=== PATIENT | female | born 1970 | race American Indian/Alaskan Native ===

== ENCOUNTER 2016-10-07 12:06 | Outpatient (CLI) | payer OTHER ==
[2016-10-07 12:49] LABS: Basophils % (Auto) 0.2 % (0.0-1.8); Hematocrit 40.6 % (30.3-42.9); Hemoglobin 13.5 gm/dl (10.1-14.3); Mean Corpuscular HGB Conc 33 % (30-34); Mean Corpuscular Hemoglobin 28 pg (28-32); Mean Corpuscular Volume 84 fl (79-97); Platelet Count 242 K/mm3 (140-440); Red Blood Count 4.82 M/mm3 (3.65-5.03); Red Cell Distribution Width 14.6 % (13.2-15.2); White Blood Count 7.9 K/mm3 (4.5-11.0)
[2016-10-07 12:55] LABS: Alanine Aminotransferase 47 units/L (7-56); Albumin 4.5 g/dL (3.9-5); Albumin/Globulin Ratio 1.3 %; Alkaline Phosphatase 102 units/L (35-129); Anion Gap 19 mmol/L; BUN/Creatinine Ratio 21.66; Bilirubin,Total < 0.2 mg/dL (0.1-1.2); Blood Urea Nitrogen 13 mg/dL (7-17); Carbon Dioxide 25 mmol/L (22-30); Chloride 98.7 mmol/L (98-107); Cholesterol 220 mg/dL (50-199); Glucose 126 mg/dL (65-100); HDL Cholesterol 36 mg/dL (40-59); LDL Cholesterol,Direct 144 mg/dL (50-130); Potassium 3.9 mmol/L (3.6-5.0); Sodium 139 mmol/L (137-145); Total Protein 8.1 g/dL (6.3-8.2); Triglycerides 204 mg/dL (2-149)
== END 2016-10-07 12:07 | disposition home or self-care (01) ==
LOC: LABHHL 12:06
PROVIDERS: ATTEND Specialist
DX: Z00.00 Encounter for general adult medical examination without abnormal findings (principal); E11.9 Type 2 diabetes mellitus without complications; D50.9 Iron deficiency anemia, unspecified; K30 Functional dyspepsia; E61.8 Deficiency of other specified nutrient elements
CPT/HCPCS: 36415; 80053; 80061; 83036; 84443; 85025

== ENCOUNTER 2017-02-10 07:57 | Inpatient (IN) | payer OTHER ==
[~2017-02-10 07:57] MED LIST: APRESOLINE IV PRN; MORPHINE IV PRN; REGLAN IV PRN; ZOFRAN IV PRN
[2017-02-10] MEDS ORDERED: LOVENOX SUB-Q SCH (10:00)
[2017-02-10] MEDS ORDERED: ANCEF/STERILE WATER 2 GM/20 ML 2 GM/20 ML SYRINGE IV NR (15:00)
[2017-02-10] MEDS ORDERED: TRANSDERM-SCOP TD SCH (15:00)
[2017-02-10] MEDS ORDERED: MYLICON PO PRN (15:00)
[2017-02-10] MEDS ORDERED: FLAGYL 500 MG/100 ML 500 MG/100 ML BAG IV NR (15:00)
[2017-02-10] MEDS ORDERED: LOVENOX SUB-Q NR (15:00)
[2017-02-10] MEDS: LACTATED RINGERS 1,000 ML IV SCH (15:18)
[2017-02-10 15:36] LABS: Basophils % (Auto) 0.3 % (0.0-1.8); Eosinophils % (Auto) 0.8 % (0.0-4.3); Hematocrit 37.7 % (30.3-42.9); Hemoglobin 12.4 gm/dl (10.1-14.3); Mean Corpuscular HGB Conc 33 % (30-34); Mean Corpuscular Hemoglobin 28 pg (28-32); Mean Corpuscular Volume 84 fl (79-97); Platelet Count 235 K/mm3 (140-440); Red Cell Distribution Width 15.4 % (13.2-15.2); White Blood Count 8.1 K/mm3 (4.5-11.0)
[2017-02-10] MEDS ORDERED: DILAUDID IV PRN (15:38)
[2017-02-10] MEDS ORDERED: ZOFRAN IV PRN (15:38)
--- NOTE | 2017-02-10 15:43 | Anesthesia Consultation ---
Anesthesia Consult and Med Hx Date of service: 02/10/17 - Airway Anesthetic Teeth Evaluation: Good ROM Head & Neck: Adequate Mental/Hyoid Distance: Adequate Mallampati Class: Class II Intubation Access Assessment: Probably Good - Pulmonary Exam CTA: Yes - Cardiac Exam Cardiac Exam: RRR - Pre-Operative Health Status ASA Pre-Surgery Classification: ASA3 Proposed Anesthetic Plan: General - Pulmonary Hx Smoking: No Hx Sleep Apnea: Yes (+CPAP) - Cardiovascular System Hx Hypertension: Yes (FOR 4 MTHS) - Central Nervous System Hx Seizures: No CVA: No Hx Psychiatric Problems: No - Endocrine Hx Renal Disease: No Hx Cirrhosis: No Hx Non-Insulin Dependent Diabetes: Yes - Other Systems Hx Cancer: No Hx Obesity: Yes
--- NOTE | 2017-02-10 15:44 | Anesthesia Day of Surgery ---
Anesthesia Day of Surgery - Day of Surgery Patient Examined: Yes Patient H&P Reviewed: Yes Patient is NPO: Yes
[2017-02-10 15:50] LABS: Alanine Aminotransferase 52 units/L (7-56); Albumin 4.1 g/dL (3.9-5); Albumin/Globulin Ratio 1.2 %; Alkaline Phosphatase 98 units/L (35-129); Anion Gap 20 mmol/L; BUN/Creatinine Ratio 11.25; Blood Urea Nitrogen 9 mg/dL (7-17); Calcium 9.8 mg/dL (8.4-10.2); Carbon Dioxide 24 mmol/L (22-30); Chloride 101.7 mmol/L (98-107); Glucose 111 mg/dL (65-100); Potassium 3.8 mmol/L (3.6-5.0); Sodium 142 mmol/L (137-145); Total Protein 7.5 g/dL (6.3-8.2)
[2017-02-10 16:00] LABS: Phosphorous 3.4 mg/dL (2.5-4.5)
[2017-02-10] MEDS ORDERED: PEPCID IV NR (16:00)
[2017-02-10] MEDS ORDERED: REGLAN IV NR (16:00)
[2017-02-10] MEDS ORDERED: VERSED IV NR (16:00)
[2017-02-10] MEDS ORDERED: DIPRIVAN 10 MG/ML IV ONE (16:04)
[2017-02-10] MEDS ORDERED: MARCAINE-EPI 0.5%-1:200,000 INFILTRATI ONE ×2 (16:05→16:32)
[2017-02-10] MEDS ORDERED: SUBLIMAZE ONE (16:05)
[2017-02-10] MEDS ORDERED: XYLOCAINE 1% 20 mL ONE (16:05)
[2017-02-10] MEDS ORDERED: XYLOCAINE 1% 20 mL INFILTRATI ONE (16:32)
[2017-02-10] MEDS ORDERED: NACL 0.9% IR ONE (16:32)
[2017-02-10] MEDS ORDERED: QUELICIN ONE (16:37)
[2017-02-10] MEDS ORDERED: DECADRON ONE (16:41)
[2017-02-10] MEDS ORDERED: XYLOCAINE MPF 2% ONE (16:41)
[2017-02-10] MEDS ORDERED: ZEMURON IV ONE (16:41)
[2017-02-10] MEDS ORDERED: ROBINUL ONE (16:49)
[2017-02-10] MEDS ORDERED: ZOFRAN ONE (16:49)
[2017-02-10] MEDS ORDERED: NEOSTIGMINE ONE (16:49)
[2017-02-10] MEDS ORDERED: LACTATED RINGERS 1,000 ML ONE (17:10)
--- NOTE | 2017-02-10 18:56 | Post Anesthesia Evaluation ---
- Post Anesthesia Evaluation Patient Participated: Yes Airway Patent: Yes Stable Respiratory Function: Yes Nausea/Vomiting: No Temp > 96.8F: Yes Pain Manageable: Yes Adequeate Hydration: Yes Anesthesia Complications: No Block Receding Appropriately: Not Applicable Patient on Ventilator: No Other Comments: PACU NURSE REPORTED SUCTIONING OUT A PIECE OF TOOTH FROM PATIENTS BOTTOM LEFT MOLAR. I EXAMINED THE PATIENT. MOLAR APPEARS TO HAVE SOME DECAY AROUND IT BUT IS NOT LOOSE. HARD TO TELL IF MOLAR IS CHIPPED. MOLAR APPEARS TO BE INTACT THOUGH.
--- NOTE | 2017-02-11 01:34 | Operative Report ---
PREOPERATIVE DIAGNOSES: 1. Morbid obesity. 2. Hypertension. POSTOPERATIVE DIAGNOSES: 1. Morbid obesity. 2. Hypertension. 3. Epigastric abdominal pain. 4. Severe intra-abdominal adhesions. 5. Hiatal hernia. 6. Inadvertent injury to the small bowel from lysis of adhesions. OPERATIVE PROCEDURES: 1. Laparoscopic sleeve gastrectomy with hiatal hernia repair. 2. Laparoscopic lysis of adhesions. 3. Laparoscopic repair of enterotomy. SURGEON: Faisal Vásquez M.D. PUBLIC RELATIONS SPECIALIST: Edi Oneal. ANESTHESIA: General. OPERATIVE TECNIQUE: The patient was placed on the operating table in dorsal supine position, and following satisfactory induction of general anesthesia, the abdomen was prepped using Hibiclens solution and draped in a sterile fashion. Using a sharp skin knife, a skin incision was made at the umbilicus and a Veress needle was placed with insufflation of CO2. After adequate insufflation of CO2 was accomplished inside the abdominal cavity, a 15 mm trocar was then placed inside the abdominal cavity for inspection of the intra-abdominal contents. Upon entering the abdominal cavity, it was noted the patient had adhesive disease in the periumbilical area. Several other trocars were then placed under direct vision and then we took a 5 mm scope and looked back at the level of the umbilicus where the umbilical port was placed and it was noted that the patient had severe intra-abdominal adhesions, small bowel up to the umbilicus. It appeared that the patient had a small bowel injury and we therefore spent about 20 minutes taking these adhesions down with the LigaSure device as well as a sharp scissor dissection. We did not take the entire area down until the very last minute. We reinspected the area of the small bowel. We inspected the area of the small bowel to see if there was a rrhnrdj-zkp-uhvycah injury to the small bowel. We could not identify ____ area. There was no evidence of ____. We therefore closed the enterotomy with a single interrupted suture. We wanted to inspect this area later on, therefore we left a single closure of this sutured area so that we could find it later on once we were to take the stomach out. We wanted to bring this up to the area where we would extract the stomach so that we can inspect it further. We then turned our attention to the sleeve gastrectomy. The liver was then lifted up with the liver retracting device. After the liver was elevated, it was noted the patient had a hiatal hernia. The phrenoesophageal membrane was dissected free away from the esophagus and the crura of the diaphragm. After the phrenoesophageal membrane was dissected free and the hernia sac was identified, the esophagus was freed up into the abdominal cavity and the right and left андрей was identified and the hiatal hernia sac was identified and dissected free. Right and left андрей was then reapproximated with interrupted simple suture of 0 Surgidac. After the hiatal hernia defect was closed, we then began a dissection of the greater curvature of the stomach by taking the LigaSure bipolar device from approximately 3 cm proximal to the pylorus. We took down the greater curvature vasculature with the LigaSure device all the way up to the level of the gastrocolic ligament as well as the short gastric vessels all the way up to the left андрей of the diaphragm. There was no evidence of any bleeding as the greater curvature was completely freed up. We then passed a #40 bougie down into the stomach, and as the anesthesia passed 40 bougie down, we grasped down to the level of the antrum. The bougie was placed. We then began a sleeve gastrectomy brought by firing sequential firings of the [place] stapling device along the greater curvature of the stomach and along the bougie, care being taken to avoid any angulation at the angularis incisura. The stapling was started out with a green load, a gold load and then completed with a blue load up to the level of the fundus of the stomach until the stomach was completely excised. The bougie was removed and the bleeding was controlled along the staple line after the pressure inside the abdominal cavity was lowered to round about 10 mmHg. The oozing at the staple line was then controlled using the hook electrocautery. After adequate hemostasis was obtained, we then applied a layer of Tisseel to the staple line to further stabilize any oozing of the staple line. The fundus of the resected stomach was then sutured to the injured small bowel and then this portion of the small bowel was then grasped with a grasper and was then extracted through the umbilicus through an extended incision at the umbilicus. As we brought the stomach out of the umbilicus, the small bowel ____ and we grasped the small bowel with Allis clamps and the suture holding the small bowel together was then excised. We then inspected the small bowel to make sure that there was no aqslqrx-qap-lvpvczk injury to the mesentery side and we could not identify any other injury in this portion of the small bowel. We therefore took a white load and stapled across this area of the small bowel and noted no other injuries to this area of the small bowel at all. After this was completed, we then ran a second layer of serosa and sutured with 3-0 Vicryl sutures over the staple line, and after this was completed, we then pushed the small bowel back inside the abdominal cavity. The stomach specimen was passed off for surgical sectioning and we began to close it by reapproximating the fascia using a running suture of #1 PDS and the skin was closed with surgical sites using interrupted subdermal stitches of 4-0 Monocryl. Steri-Strips were applied to the wound. The patient tolerated the procedure well and subsequently sent over to recovery room in satisfactory condition. JOB# [id number] LOUISE/BETTINA
[2017-02-11] MEDS: LACTATED RINGERS 1,000 ML IV SCH (02:53)
--- NOTE | 2017-02-11 07:28 | Admit Criteria Form ---
Admission Criteria Documentation: AMBULATORY SURGERY EXCEPTION CRITERIA Ambulatory Surgery Exception Criteria ( Place 'X' for any and all applicable criteria): Surgery or procedure performed on ambulatory basis may require inpatient stay for[A] ANY ONE of the following(1)(2)(3)(4)(5)(6)(7)(8)(9): [X] I. A preoperative situation, condition, or finding that warrants inpatient stay as indicated by ANY ONE of the following: [] a) Inpatient care needed because of severity of a disease or condition rather than the surgery (eg, severe cardiac or respiratory disease, severe infection) (15) (16 ) (17) (18) [] b) Emergent procedure (eg, angioplasty for acute ischemia)(19) [] c) Complex surgical approach or situation as indicated by ANY ONE of the following(3): [] i) Open approach needed instead of usual endoscopic, transcatheter, or other less invasive procedure [] ii) Difficult approach because of previous operation [] iii) Airway monitoring required after open neck procedures(20)(21) [] iv) Large mass requiring unusually extensive dissection [] v) Additional complicating feature requiring inpatient care (eg, drain management)(22(23): [X] d) Major surgery in a pt with high anesthetic risk as indicated by ANY ONE of the following (2)(3)(5)(7)(8): [X] i) ASA risk class III or higher (severe systemic disease impairing function) [D] [] ii) Advanced age (eg, older than 85 years)(14)(24) [] iii) Symptomatic heart failure(25) [] iv) Symptomatic asthma or COPD(8)(21) [] v) Morbid obesity with hemodynamic or respiratory problems(20)( 21)(26)(27) [] vi) Obstructive sleep apnea(20)(21) [] vii) Former premature infants who are younger than 60 weeks [] viii) High risk for severe postoperative abnormalities (eg, severe postoperative hypocalcemia after parathyroidectomy for severe hyperparathyroidism)(27)( 28) [] ix) Unstable angina(25) [] e) Drug-related risk requiring inpatient stay as indicated by ANY ONE of the following(5)(10)(14)(32)(33) [] i) Procedure requires discontinuing drugs or other therapy (eg , antiarrhythmic medication, antiseizure medication), which necessitates inpatient observation or treatment.(18)(31) [] ii) Major surgery and high risk drug use as indicated by ANY ONE of the following: [] 1) Active abuse of cocaine or similar drug [] 2) Monoamine oxidase inhibitor use [] 3) Other drug identified as posing risk [] f) Inadequate outpatient care situation as indicated by ANY ONE of the following(5)(10)(14)(32)(33) [] i) Patient lives remote from medical facility and procedure has urgent complication potential, and temporary nearby residence cannot be arranged [] ii) Patient will have postprocedure incapacitation and inadequate assistance at home, or alternative level of care cannot be arranged. [] iii) Patient will have long general anesthesia or procedure side effect resolution time, and competent person to stay with patient on first postoperative night at home or alternative level of care cannot be arranged. []iv) Other inadequate outpatient situation that cannot be handled by other means [] II. A perioperative event, condition, or finding that warrants inpatient stay as indicated by ANY ONE of the following (1)(2)(3): [] a) Inadequate physiologic recovery: cardiovascular, respiratory, or hemodynamic status not normal or near preoperative baseline(18) [] b) Hemodynamic instability [] c) Patient not alert with near normal or baseline mental status [] d) Temperature not normal or as expected and not appropriate for outpatient treatment of condition [] e) Ambulatory or appropriate activity level status not yet achieved post procedure [E](34)(35)(36) [] f) Operative site not appropriate (eg, unexpected or excessive drainage or bleeding) [] g) Postoperative effects not resolved or adequately managed (eg, significant pain or vomiting not appropriate for outpatient or next level of care)(10)(12) [] h) Complicating features requiring inpatient care as indicated by ANY ONE of the following(37): [] i) Severe complications of procedure (eg, bowel injury, airway compromise, vascular injury,severe hemorrhage) [] ii) Extensive (eg, dissection far beyond usual scope of procedure ) or prolonged (eg, 120 minutes beyond usual) surgery needed requiring inpatient postoperative care [] iii) Conversion to an open or complex procedure that requires inpatient care (eg, open vs laparoscopic cholecystectomy, abdominal vs vaginal hysterectomy)(38) [] iv) Comorbid condition or test result identified during or post procedure that requires inpatient care (7) [] v) Malignant hyperthermia(30) [] vi) Other complicating feature requiring inpatient care(22)(23) Inpatient stay may be needed until ALL of the following are present (1)(2)(3)(4) (5)(6)(10)(14)(33)(40): []a) Physiologic recovery: cardiovascular, respiratory, and hemodynamic status normal or near preoperative baseline []b) Hemodynamic stability []c) Patient alert, with near normal or baseline mental status []d) Temperature appropriate: patient afebrile or temperature appropriate for outpt treatment of condition []e) Activity level appropriate: ambulatory or appropriate activity level post procedure []f) Operative site appropriate as indicated by ALL of the following: []i) Site dry or with expected drainage []ii) Any blood noted is as expected for procedure. []g) Postoperative effects resolved or managed as indicated by ALL of the following: []i) Pain management appropriate for outpatient (or next level of) care(10) []ii) Minimal nausea and vomiting: if present, successfully treated with oral medication(12) []iii) Headache, dizziness, or drowsiness (if present) are mild. []h) Voiding status acceptable as indicated by ANY ONE of the following: []i) Voiding spontaneously []ii) No voiding but instructions given for follow-up in 6 to 8 hours []iii) Urinary catheter in place, and instructions given for follow-up []i) Complicating features requiring inpatient care manageable at a lower level of care(37) []j) Comorbid conditions manageable at a lower level of care(37) The original [employer] content created by [employer] has been revised. The portions of the content which have been revised are identified through the use of italic text or in bold, and [facility] [employer] has neither reviewed nor approved the modified material. All other unmodified content is copyright [employer]. Please see references footnoted in the original [employer] edition 2016 Admission Criteria Met: Yes
[2017-02-11 09:31] VITALS: BP 114/72
--- NOTE | 2017-02-11 10:31 | Discharge Summary ---
Providers - Providers Date of Admission: 02/10/17 14:31 Date of discharge: 02/11/17 Attending physician: CATA YUN Primary care physician: CLAIRE FINCH Hospitalization Reason for admission: post op observation Condition: Stable Disposition: DISCHARGED TO HOME OR SELFCARE Core Measure Documentation - Palliative Care Palliative Care/ Comfort Measures: Not Applicable - Core Measures Any of the following diagnoses?: none Exam - Physical Exam Narrative exam: VSS, AF NAD Lungs CTA BL Heart RRR Abd soft, NT ND, wounds with dressings c/d/i Neuro AAOx3 - Constitutional Vitals: Temp Pulse Resp BP Pulse Ox 98.4 F 84 18 114/72 100 02/11/17 08:00 02/11/17 08:00 02/11/17 08:00 02/11/17 08:00 02/11/17 08:00 Plan Activity: advance as tolerated Diet: other (bariatric stage) Special Instructions: no heavy lifting Follow up with: CLAIRE FINCH MD [Primary Care Provider] - 7 Days
[2017-02-11 10:40] LABS: Hematocrit 38.6 % (30.3-42.9); Hemoglobin 11.9 gm/dl (10.1-14.3); Mean Corpuscular HGB Conc 31 % (30-34); Mean Corpuscular Hemoglobin 28 pg (28-32); Platelet Count 201 K/mm3 (140-440); Red Blood Count 4.29 M/mm3 (3.65-5.03); Red Cell Distribution Width 15.4 % (13.2-15.2); White Blood Count 13.7 K/mm3 (4.5-11.0)
[2017-02-11 10:43] LABS: Mean Corpuscular Volume 90 fl (79-97)
[2017-02-11 10:44] LABS: Basophils % (Auto) 0.1 % (0.0-1.8)
[2017-02-11 10:45] LABS: Diff Status Complete
[2017-02-11 11:53] LABS: Alanine Aminotransferase 51 units/L (7-56); Albumin 4.2 g/dL (3.9-5); Albumin/Globulin Ratio 1.2 %; Alkaline Phosphatase 97 units/L (35-129); Anion Gap 28 mmol/L; Blood Urea Nitrogen 9 mg/dL (7-17); Carbon Dioxide 18 mmol/L (22-30); Chloride 102.7 mmol/L (98-107); Glucose 90 mg/dL (65-100); Potassium 4.1 mmol/L (3.6-5.0); Sodium 145 mmol/L (137-145); Total Protein 7.8 g/dL (6.3-8.2)
== END 2017-02-11 12:24 | disposition home or self-care (01) | DRG 621 ==
LOC: 3A 14:31 → 2B-SURG 18:37
PROVIDERS: ADMIT Specialist; ATTEND Specialist
PROC: 0DNW4ZZ Release Peritoneum, Percutaneous Endoscopic Approach (ICD-10-PCS; principal; 2017-02-10)
PROC: 0BQS4ZZ (ICD-10-PCS; principal; 2017-02-10)
PROC: 0DQ84ZZ Repair Small Intestine, Percutaneous Endoscopic Approach (ICD-10-PCS; principal; 2017-02-10)
PROC: 0BQR4ZZ (ICD-10-PCS; principal; 2017-02-10)
PROC: 0DB64Z3 Excision of Stomach, Percutaneous Endoscopic Approach, Vertical (ICD-10-PCS; principal; 2017-02-10)
DX: E66.01 Morbid (severe) obesity due to excess calories (principal); Z68.37 Body mass index [BMI] 37.0-37.9, adult; I10 Essential (primary) hypertension; K44.9 Diaphragmatic hernia without obstruction or gangrene; G47.30 Sleep apnea, unspecified; E11.9 Type 2 diabetes mellitus without complications; K30 Functional dyspepsia; K66.0 Peritoneal adhesions (postprocedural) (postinfection); Z90.710 Acquired absence of both cervix and uterus; Z98.51 Tubal ligation status; Z82.49 Family history of ischemic heart disease and other diseases of the circulatory system; Z83.3 Family history of diabetes mellitus; Z01.812 Encounter for preprocedural laboratory examination
CPT/HCPCS: 36415; 80053; 82962; 83735; 84100; 85025; 88307; C9250; J0330; J0690; J1100; J1650; J2250; J2270; J2405; J2704; J2710; J2765; J3010; J7120